=== PATIENT | male | born 1940 | race Two or more races ===

== ENCOUNTER 2020-05-29 05:53 | Day surgery (SDC) | payer OTHER ==
[~2020-05-29 05:53] MED LIST: BYSTOLIC10 MG PO; LEVEMIR100 U/M1 PO; LOTREL 10/40 MG1 CAP PO; METFORMIN HCL1000 M2 PO; SYNTHROID75 MCG PO; VYTORIN 10-40 M1 TAB PO
== END 2020-05-29 16:00 | disposition home or self-care (01) ==
LOC: CIR.AMB 05:53
PROVIDERS: ATTEND Urology
DX: C67.1 Malignant neoplasm of dome of bladder (principal); Z20.828 Contact with and (suspected) exposure to other viral communicable diseases